=== PATIENT | female | born 1995 | race Caucasian/White ===

== ENCOUNTER 2019-05-20 00:57 | Emergency (ER) | payer SELFPAY ==
[~2019-05-20] VITALS: Ht 157.4 cm; Wt 105.9 kg
--- NOTE | ~2019-05-20 | EKG ---
[place], [place] ELECTROCARDIOGRAM REPORT NAME: GER RODRIGUEZ UNIT #: [id number] ROOM: DOCTOR: EPIPHANY DRAFT REPORT BIRTHDATE: [birth year] [facility] Test Date: 2019-05-20 Test Time: 02:04:07 Pat Name: GER RODRIGUEZ Department: ed Room: Gender: F Frame Nailer: : 1995 Requested By: DAMIR DELGADO Order Number: [id number] Reading MD: Trevor Sism MD Measurements Intervals [place] Rate: 83 P: 42 VA: 158 QRS: 55 QRSD: 125 T: 44 QT: 384 QTc: 452 Interpretive Statements Sinus rhythm IVCD, consider atypical RBBB Electronically Signed On 05-20-2019 12:22:56 PDT by Trevor Sims MD CM:EKGRPT:ELECTROCARDIOGRAM REPORT [id number] 1222 DAMIR DELGADO MD EPIPHANY DRAFT REPORT DAMIR DELGADO MD
[2019-05-20 01:44] LABS: BASO # 0.1 10*3/uL (0.0-0.1); BASO % 0.7 % (0.0-1.0); EOS # 0.2 10*3/uL (0.0-0.4); HEMATOCRIT 39.3 % (37.0-47.0); HEMOGLOBIN 13.3 g/dl (12.0-16.0); LYMPH # 2.1 10*3/uL (1.3-4.4); LYMPH % 25.8 % (27.0-41.0); MEAN CELL VOLUME 88.3 fl (81.0-99.0); MEAN CORPUSCULAR HGB 29.9 pg (27.0-31.0); MEAN CORPUSCULAR HGB CONC 33.8 g/dl (33.0-37.0); MEAN PLATELET VOLUME 9.6 fl (9.6-12.3); MONO # 0.3 10*3/uL (0.1-1.0); MONO % 3.9 % (3.0-9.0); NEUT # 5.5 10*3/uL (2.3-7.9); NEUT % 67.2 % (47.0-73.0); PLATELET COUNT AUTOMATED 341 10*3/uL (130-400); RED BLOOD COUNT 4.45 10*6/uL (4.10-5.10); RED CELL DISTRI WIDTH 13.2 % (0-14.5); WHITE BLOOD COUNT 8.2 10*3/uL (4.8-10.8)
[2019-05-20 02:00] LABS: ALBUMIN 4.1 gm/dl (3.1-4.5); ALKALINE PHOSPHATASE 88 U/L (45-117); BUN 9 mg/dl (7-24); CHLORIDE 103 mmol/L (98-107); CREATININE 0.86 mg/dL (0.55-1.02); LIPASE 68 U/L (73-393); POTASSIUM 3.3 mmol/L (3.5-5.1); SGOT/AST 27 IU/L (3-35); SGPT/ALT 41 U/L (12-78); SODIUM 139 mmol/L (136-145); TOTAL PROTEIN 8.1 gm/dL (6.4-8.2)
[2019-05-20 02:02] LABS: ACETAMINOPHEN (TYLENOL) < 5.0 ug/ml (10-30); BETA-HCG, QUANT < 1.0 mIU/mL (1-3); TROPONIN I < 0.015 ng/ml (<0.045)
[2019-05-20 02:14] LABS: URINE AMPHETAMINES < 1000 (1000ng/ml); URINE BARBITURATES < 200 (200ng/ml); URINE BENZODIAZEPINES < 200 (200ng/ml); URINE CANNABINOIDS (THC) < 50 (50ng/ml); URINE COCAINE < 300 (300ng/ml); URINE METHADONE < 300 (300ng/ml); URINE OPIATES < 300 (300ng/ml)
[2019-05-20 02:18] LABS: URINE PHENCYCLIDINE < 25 (25ng/ml)
[2019-05-20 06:22] LABS: BILIRUBIN NEGATIVE (NEGATIVE); BLOOD 2+ (NEGATIVE); CLARITY SL CLOUDY (CLEAR); COLOR YELLOW (YELLOW); GLUCOSE NEGATIVE (NEGATIVE); KETONE TRACE (NEGATIVE); LEUKO ESTERASE NEGATIVE (NEGATIVE); NITRITE NEGATIVE (NEGATIVE); PH 5.5 (5.0-9.0); SPECIFIC GRAVITY 1.015 (1.005-1.030); UROBILINOGEN 0.2 E.U./dl (0.2-1.0)
[2019-05-20 06:24] LABS: BACTERIA 2+
== END 2019-05-20 09:07 | disposition home or self-care (01) ==
LOC: ED 00:57
PROVIDERS: Emergency Medicine Emergency Medical Services
DX: F10.129 Alcohol abuse with intoxication, unspecified (principal); R11.10 Vomiting, unspecified; R79.1 Abnormal coagulation profile; Y90.9 Presence of alcohol in blood, level not specified